=== PATIENT | female | born 1990 | race Caucasian/White ===

== ENCOUNTER → 2021-05-20 07:19 | Outpatient (CLI) | payer BC, SELFPAY ==
--- NOTE | ~2021-05-20 | US_ITS ---
EXAMINATION: US OB /maternal detail DATE: 05/20/2021 08:11 INDICATION: survey TECHNIQUE: Multiple obstetric sonographic images performed. FINDINGS: No prior studies for comparison. There is a single living fetus in variable presentation. The placenta is anterior without placenta p revia. Placental margin measures 1.1 cm to the cervix. Amniotic fluid volume is subjectively normal. cardiac activity and movement is noted with a heart rate of 155 beats per minute. The following anatomy was identified as normal: 4 chamber heart 3 vessel cord cord insertion kidneys urinary bladder stomach spine diaphragm ventricles cisterna magna cerebellum survey limited for evaluation of ventricular outflow tracts due to lie. The following biometric data were obtained: BPD: 51mm corresponds to gestational age 21 weeks 2 days. Head circumference: 184 mm corresponds to gestational age 20 weeks 5 days. Abdominal circumference: 158 mm corresponds to gestational age 20 weeks 6 days. Femur length: 33 mm corresponds to gestational age 20 weeks 2 days. Head circumference to abdominal circumference ratio: 1.16 (normal range for expected gestational age is 1.06-1.25). Estimated weight: 371 grams +/- 56 grams using Hadlock method. IMPRESSION: 1: Single living intrauterine with an estimated gestational age of 20weeks 6days by current ultrasound measurements, with an EDC of 10/01/2021 in variable presentation. 2. Limited visualization of ventricular outflow tracts due to position. Otherwise, unremarkabl e survey. 3: Low-lying anterior placenta measuring 1.1 cm to the cervix. Reviewed, dictated and finalized at location A. IMPRESSION: 1: Single living intrauterine with an estimated gestational age of 20 weeks 6days by current ultrasound measurements, with an EDC of 10/01/2021 in va riable presentation. 2. Limited visualization of ventricular outflow tracts due to position. Otherwise, unremarkable survey. 3: Low-lying anterior placenta measuring 1.1 cm to the cervix.
== END ==
PROVIDERS: Visit Provider Obstetrics & Gynecology
DX: O44.42 Low lying placenta NOS or without hemorrhage, second trimester (principal); Z3A.20 20 weeks gestation of pregnancy
CPT/HCPCS: 76805

== ENCOUNTER → 2021-07-07 15:11 | Outpatient (CLI) | payer BC, SELFPAY ==
--- NOTE | ~2021-07-07 | US_ITS ---
US OB limited DATE: 07/07/2021 15:44 INDICATION: Obesity complicating . TECHNIQUE: Real-time imaging and Doppler analysis COMPARISON: 05/20/2021 obstetrical ultrasound FINDINGS: Live cruz intrauterine gestation, fetus in vertex presentation, longitudinal lie. Feta l heart rate of 138 bpm. The left and right ventricular outflow tracts appear normal. Anterior placenta. Lower margin of placenta is 8.9 cm above the internal os. Subjectively normal amount of amniotic fluid. IMPRESSION: Left and right ventricular outflow tracts appear normal Reviewed, dictated and finalized at [facility]. Reviewed, dictated and finalized at location B.
== END ==
PROVIDERS: Visit Provider Obstetrics & Gynecology Gynecologic Oncology
DX: O99.210 Obesity complicating pregnancy, unspecified trimester (principal); Z36.89 Encounter for other specified antenatal screening; Z3A.00 Weeks of gestation of pregnancy not specified
CPT/HCPCS: 76815